=== PATIENT | female | born 1960 | race Caucasian/White ===

== ENCOUNTER 2020-03-02 01:01 | Emergency (ER) | payer BC ==
[2020-03-02] MEDS ORDERED: Orphenadrine 60 MG/2 ML Inj IM ONE (01:12)
[2020-03-02] MEDS ORDERED: Ketorolac 60 MG/2 ML SDV IM ONE (01:13)
[2020-03-02] MEDS ORDERED: Take Home: Acetaminophen/oxyCODONE 325-5 MG, 5 Tab Pack PO ONE (01:13)
--- NOTE | 2020-03-02 01:17 | EDM.PDOC ---
ED HPI GENERAL MEDICAL PROBLEM - General Chief Complaint: Back Pain or Injury Stated Complaint: SI JOINT PAIN Time Seen by Provider: 03/02/20 01:05 Source of Information: Reports: Patient History Limitations: Reports: No Limitations - History of Present Illness INITIAL COMMENTS - FREE TEXT/NARRATIVE: Patient comes into the emergency department with complaints of SI joint pain. Patient states that she has been working with neurology Regarding her chronic back And SI joint. Patient states that she had contacted her doctor this morning and they are going to try to get her set up with the pain clinic to have injections in detail the pain and discomfort goes away. Patient has had multiple MRIs/CT scans completed as well as going to physical therapy and primary care nurse practitioner. Patient states this afternoon she was starting to feel better she had taken a couple of her Flexeril's with pretty good relief according to her. However this evening approximately around 11 PM or kathryn roximately 2 hours prior to arrival to the emergency department she states that she had sharp shooting significant discomfort and pain down the left leg and she has not been able to get it under control. She ended up taking more Flexeril with 0 relief. Patient has been seen in the emergency department before and received Norflex IM injection as well as a Toradol injection with moderate relief. Patient would like that injection again if at all possible to help with the pain discomfort. Patient is also looking for some pain medications to help her get through this weekend until she can have her injection completed in the pain clinic early next week. Patient states when she rubs her thigh it does provide minimal relief however she states moving especially walking with the SI joint causes major significant pain and discomfort. Patient denies any chest pain, shortness of breath, dizziness, CMS concerns, range of motion concerns, numbness or tingling in either of her upper or lower extremities, headache, blurred vision, visual changes, abdominal pain, genitourinary concerns, or peripheral edema. Onset: Gradual Duration: Getting Worse Location: Reports: Lower Extremity, Left Quality: Reports: Sharp, Throbbing Severity: Severe Improves with: Reports: Rest Worsens with: Reports: Movement Associated Symptoms: Reports: No Other Symptoms Treatments DIRECTOR OF SUSTAINABILITY: Reports: Other (see below) (flexiril ) Left Back Pain Score (Numeric/FACES): 10 - Related Data Allergies Allergy/AdvReac Type Severity Reaction Status Date / Time No Known Allergies Allergy Verified 03/02/20 01:02 Home Meds: Home Meds Cyclobenzaprine [Flexeril] 10 mg PO TID PRN 03/02/20 [History] Diclofenac Sodium 75 mg PO BID PRN 03/02/20 [History] predniSONE [Prednisone] 20 mg PO DAILY #5 tablet 03/02/20 [Rx] Past Medical History - Past Health History Medical/Surgical History: Denies Medical/Surgical History Other Musculoskeletal History: sciatic pain Oncologic (Cancer) History: Reports: Uterine - Past Surgical History Female Surgical History: Reports: Hysterectomy Social & Family History - Tobacco Use Tobacco Use Status *Q: Unknown Ever Used Tobacco ED ROS GENERAL - Review of Systems Review Of Systems: Comprehensive ROS is negative, except as noted in HPI. Constitutional: Reports: No Symptoms HEENT: Reports: No Symptoms Respiratory: Reports: No Symptoms Cardiovascular: Reports: No Symptoms Endocrine: Reports: No Symptoms GI/Abdominal: Reports: No Symptoms : Reports: No Symptoms Musculoskeletal: Reports: Leg Pain Skin: Reports: No Symptoms Neurological: Reports: No Symptoms Psychiatric: Reports: No Symptoms Hematologic/Lymphatic: Reports: No Symptoms Immunologic: Reports: No Symptoms ED EXAM, GENERAL - Physical Exam Exam: See Below Exam Limited By: No Limitations General Appearance: Alert, WD/WN, No Apparent Distress Head: Atraumatic, Normocephalic Neck: Normal Inspection, Supple, Non-Tender, Full Range of Motion Respiratory/Chest: No Respiratory Distress, No Accessory Muscle Use, Chest Non- Tender Cardiovascular: Normal Peripheral Pulses, Regular Rate, Rhythm, No Edema (Female) Exam: Deferred Rectal (Female) Exam: Deferred Back Exam: Full Range of Motion Extremities: Normal Inspection, Normal Range of Motion, Non-Tender, No Pedal Edema, Normal Capillary Refill Neurological: Alert, Oriented, CN II-XII Intact, Normal Cognition, Normal Gait Psychiatric: Normal Affect, Normal Mood Skin Exam: Warm, Dry, Intact, Normal Color, No Rash Course - Vital Signs Last Recorded V/S: Last Vital Signs Temp 36.3 C 03/02/20 01:03 Pulse 80 03/02/20 01:03 Resp 20 03/02/20 01:03 BP 180/79 H 03/02/20 01:03 Pulse Ox 99 03/02/20 01:03 Departure - Departure Time of Disposition: 01:30 Disposition: Home, Self-Care 01 Condition: Good Clinical Impression: Chronic SI joint pain - Discharge Information *PRESCRIPTION DRUG MONITORING PROGRAM REVIEWED*: Not Applicable *COPY OF PRESCRIPTION DRUG MONITORING REPORT IN PATIENT SANDY: Not Applicable Instructions: Sacroiliac Joint Dysfunction, Acetaminophen; Oxycodone tablets, Prednisone tablets Additional Instructions: 1. rest 2. Can take your Flexeril as previously prescribed. Can take a Percocet for severe pain but must be 4 hours apart from Flexeril 3. Take prednisone for the next 5 days to help decrease the inflammation in the area and joint 4. Continue all at home medications 5. Activity and diet as tolerated 6. Can take over the counter Tylenol for any pain or discomfort 7. use ice or heat for 20 minutes at a time 3-4 ariana a day 8. Follow up with PCP if symptoms continue, return, or progress. Continue with your pain clinic appointment early next week when it is scheduled. 9. Call with any questions or concerns The medication you have been prescribed today has a warning it may inhibit your response or action time. It is advised you do not drive or operate any device while using this medications. It is also advised this medication can not be shared or given to other individuals for it is against the law and one may be punished in the court of law. Sepsis Event Note (ED) - Evaluation Sepsis Screening Result: No Definite Risk - Focused Exam Vital Signs: Vital Signs Temp Pulse Resp BP Pulse Ox 03/02/20 01:03 36.3 C 80 20 180/79 H 99 - Assessment/Plan Assessment:: 1. SI joint pain Plan: 1. Ice Applied to the affected area 2. Medication offered to the patient- Toradol and Norflex injections 3. Prednisone 20mg PO script given to her to start in the am 4. Take home package given for Percocet 5/325mg PO 5. Education regarding splinting, activity, [id number] medications, and follow-up care provided. 6. All questions and concerns addressed with the patient prior to discharge
== END 2020-03-02 01:34 | disposition home or self-care (01) ==
LOC: VM.ED 01:01
DX: M53.3 Sacrococcygeal disorders, not elsewhere classified (principal); G89.29 Other chronic pain; Z90.710 Acquired absence of both cervix and uterus
CPT/HCPCS: 96372; 99283; A9270; J1885; J2360

== ENCOUNTER 2020-03-04 04:35 | Emergency (ER) | payer BC ==
[2020-03-04] MEDS ORDERED: Orphenadrine 60 MG/2 ML Inj IM ONE (04:53)
[2020-03-04] MEDS ORDERED: Ketorolac 30 MG/ML SDV IM ONE (04:53)
[2020-03-04] MEDS ORDERED: Take Home: Acetaminophen/oxyCODONE 325-5 MG, 5 Tab Pack PO ONE (04:54)
--- NOTE | 2020-03-04 05:06 | EDM.PDOC ---
ED HPI GENERAL MEDICAL PROBLEM - General Chief Complaint: Back Pain or Injury Stated Complaint: back pain Time Seen by Provider: 03/04/20 04:46 Source of Information: Reports: Patient History Limitations: Reports: No Limitations - History of Present Illness INITIAL COMMENTS - FREE TEXT/NARRATIVE: Pt. presents to ER with complaints of acute on chronic L lower extremity pain. Pt. states that the discomfort has been persent for months and that she is undergoing physical therapy for the discomfort. She is scheduled to see pain management hopefully today for an SI joint injection. She was seen on Wednesday by Marjorie Rabago NP who gave the patient injections of norflex and toradol. She also gave the patient a 5 pack of percocet 5/325mg and the patient states that she took the last one late last night. Pt. states that this discomfort is similar to what she has experienced in the past. She has had MRIs of her pelvis and lumbar spine, and has seen neurology. She denies any fever or chills. No nausea, vomiting, or diarrhea. No numbness/tingling in the distal portion of the extremity. Denies any saddle anesthesia. No problems with incontinence of retention of urine. Location: Reports: Back, Pelvis Quality: Reports: Sharp, Throbbing Severity: Severe Left Lower Back Pain Score (Numeric/FACES): 10 - Related Data Allergies Allergy/AdvReac Type Severity Reaction Status Date / Time No Known Allergies Allergy Verified 03/04/20 04:35 Home Meds: Home Meds Cyclobenzaprine [Flexeril] 10 mg PO TID PRN 03/02/20 [History] Diclofenac Sodium 75 mg PO BID PRN 03/02/20 [History] predniSONE [Prednisone] 20 mg PO DAILY #5 tablet 03/02/20 [Rx] Past Medical History - Past Health History Medical/Surgical History: Denies Medical/Surgical History Other Musculoskeletal History: sciatic pain, left sided SI joint problems Oncologic (Cancer) History: Reports: Uterine - Past Surgical History Female Surgical History: Reports: Hysterectomy Social & Family History - Tobacco Use Tobacco Use Status *Q: Never Tobacco User ED ROS GENERAL - Review of Systems Review Of Systems: Comprehensive ROS is negative, except as noted in HPI. ED EXAM, GENERAL - Physical Exam Exam: See Below Exam Limited By: No Limitations General Appearance: Alert, WD/WN, Anxious, Moderate Distress Extremities: Normal Inspection, Normal Range of Motion, No Pedal Edema, Normal Capillary Refill Neurological: Alert, Oriented, CN II-XII Intact, Normal Cognition, Normal Gait, Normal Reflexes, No Motor/Sensory Deficits Skin Exam: Warm, Dry, Intact, Normal Color, No Rash Course - Vital Signs Last Recorded V/S: Last Vital Signs Temp 36.6 C 03/04/20 04:36 Pulse 90 03/04/20 04:36 Resp 20 03/04/20 04:36 BP 147/84 H 03/04/20 04:36 Pulse Ox 98 03/04/20 04:36 - Orders/Labs/Meds Meds: Medications Discontinued Medications Generic Name Dose Route Start Last Admin Trade Name Addy PRN Reason Stop Dose Admin Ketorolac Tromethamine 30 mg 03/04/20 04:53 03/04/20 05:00 Toradol IM 03/04/20 04:54 30 mg ONETIME ONE Administration Orphenadrine Citrate 60 mg 03/04/20 04:53 03/04/20 05:00 Norflex IM 03/04/20 04:54 60 mg ONETIME ONE Administration Oxycodone/Acetaminophen 1 packet 03/04/20 04:54 03/04/20 05:00 Take Home: Acetamin/Oxycodon 325-5 Mg, 5 Pack PO 03/04/20 04:55 1 packet ONETIME ONE Administration Departure - Departure Time of Disposition: 05:07 Disposition: Home, Self-Care 01 Clinical Impression: Chronic SI joint pain - Discharge Information Instructions: Sacroiliac Joint Dysfunction Referrals: PCP,Unobtain [Primary Care Provider] - Forms: ED Department Discharge Additional Instructions: Oxycodone/acetaminophen 5/325mg 1 tab every 6 hours as needed for pain Follow-up with your PCP/Pain clinic today Sepsis Event Note (ED) - Evaluation Sepsis Screening Result: No Definite Risk - Focused Exam Vital Signs: Vital Signs Temp Pulse Resp BP Pulse Ox 03/04/20 04:36 36.6 C 90 20 147/84 H 98 - Problem List Review Problem List Initiated/Reviewed/Updated: Yes - Assessment/Plan Plan: Oxycodone/acetaminophen 5/325mg 1 tab every 6 hours as needed for pain Follow-up with your PCP/Pain clinic today Finish your course of prednisone. Continue with your other medications.
== END 2020-03-04 05:08 | disposition home or self-care (01) ==
LOC: VM.ED 04:35
DX: M53.3 Sacrococcygeal disorders, not elsewhere classified (principal)
CPT/HCPCS: 96372; 99283; A9270-GY; J1885; J2360

== ENCOUNTER 2020-03-06 12:18 | Emergency (ER) | payer BC ==
[2020-03-06] MEDS ORDERED: HYDROmorphone 1 MG/ML Syringe IM ONE (12:24)
[2020-03-06] MEDS ORDERED: Promethazine 25 MG/ML SDV IM ONE (12:24)
--- NOTE | 2020-03-06 12:25 | EDM.PDOC ---
ED HPI GENERAL MEDICAL PROBLEM - General Stated Complaint: BACK PAIN Time Seen by Provider: 03/06/20 12:18 - History of Present Illness INITIAL COMMENTS - FREE TEXT/NARRATIVE: Patient comes emergency department today with complaints of left anterior thigh and leg pain. This patient has been struggling with recurrent SI joint pain on the left side that radiates down her left buttocks around to the anterior aspect of her left thigh. Is been going on since October. She has been seen multiple times in the emergency department most notably last week and x2. She has been taking her prednisone and her Flexeril without much improvement. She has been using Percocets as well for this pain. She has no recent falls trauma or injury. She has been seen multiple times in the primary care clinic as well as the ER. Today she was actually seen at the pain clinic in [place] where she received an injection in her spine which did help with her pain down the left buttocks but it did not help with the pain in the anterior aspect of the left thigh. She has no change in her functionality of her upper or lower extremities. No paresthesias of her upper or lower extremities. She has no change in the strength of her lower extremities. No loss of bowel or bladder. She has seen physical therapy for this but she does not feel it does much. She has been taking her Flexeril and diclofenac. Although today after she had the injection in her spine the pain down her left buttocks has resolved but the pain on the left anterior thigh is much worse. It is a burning searing shooting pain that is worse with movement. She has no fever or chills. No hematuria dysuria or urinary frequency. No flank pain. He recently had an MRI of her lower back that showed no acute findings according to the patient. Left Hip Pain Score (Numeric/FACES): 10 - Related Data Allergies Allergy/AdvReac Type Severity Reaction Status Date / Time No Known Allergies Allergy Verified 03/06/20 13:17 Home Meds: Home Meds Cyclobenzaprine [Flexeril] 10 mg PO TID PRN 03/02/20 [History] Diclofenac Sodium 75 mg PO BID PRN 03/02/20 [History] predniSONE [Prednisone] 20 mg PO DAILY #5 tablet 03/02/20 [Rx] Gabapentin [Neurontin] 300 mg PO DAILY #30 cap 03/06/20 [Rx] Past Medical History - Past Health History Medical/Surgical History: Denies Medical/Surgical History Other Musculoskeletal History: sciatic pain, left sided SI joint problems Oncologic (Cancer) History: Reports: Uterine - Past Surgical History Female Surgical History: Reports: Hysterectomy ED ROS GENERAL - Review of Systems Review Of Systems: Comprehensive ROS is negative, except as noted in HPI. ED EXAM,LOWER BACK PAIN/INJURY - Physical Exam Exam: See Below Exam Limited By: No Limitations General Appearance: Alert, WD/WN, Moderate Distress Eye Exam: Bilateral Eye: EOMI, PERRL Ears: Normal External Exam Nose: Normal Inspection Throat/Mouth: Normal Inspection Head: Atraumatic, Normocephalic Neck: Normal Inspection, Supple Respiratory/Chest: No Respiratory Distress, Lungs Clear, No Accessory Muscle Use, Chest Non-Tender Cardiovascular: Normal Peripheral Pulses, Regular Rate, Rhythm GI/Abdominal: Normal Bowel Sounds, Soft (Female) Exam: Deferred Rectal (Female) Exam: Deferred Back Exam: Normal Inspection, Full Range of Motion. No: CVA Tenderness (L), CVA Tenderness (R), Muscle Spasm, Paraspinal Tenderness, Vertebral Tenderness Extremities: Normal Inspection, Normal Range of Motion, No Pedal Edema, Normal Capillary Refill Neurological: Alert, Normal Mood/Affect, Normal Dorsiflexion, CN II-XII Intact, Normal Plantar Flexion, Normal Gait, Normal Reflexes, No Motor/Sensory Deficits, Oriented x 3 DTR - Lower Extremities: 0: Ankle (R), 2+: Knee (R), Knee (L), Ankle (R), Ankle (L) Psychiatric: Anxious Skin Exam: Warm, Dry, Intact, Normal Color, No Rash Course - Vital Signs Last Recorded V/S: Last Vital Signs Temp 97.7 F 03/06/20 12:35 Pulse 88 03/06/20 12:35 Resp 20 03/06/20 12:35 BP 147/74 H 03/06/20 12:35 Pulse Ox 100 03/06/20 12:35 - Orders/Labs/Meds Meds: Medications Discontinued Medications Generic Name Dose Route Start Last Admin Trade Name Freq PRN Reason Stop Dose Admin Gabapentin 300 mg 03/06/20 13:11 03/06/20 13:20 Neurontin PO 03/06/20 13:12 300 mg ONETIME ONE Administration Hydromorphone HCl 1 mg 03/06/20 12:24 03/06/20 12:30 Dilaudid IM 03/06/20 12:25 1 mg ONETIME ONE Administration Promethazine HCl 12.5 mg 03/06/20 12:24 03/06/20 12:30 Phenergan IM 03/06/20 12:25 12.5 mg ONETIME ONE Administration - Radiology Interpretation Free Text/Narrative:: I did review her MRI that was completed on 02/12/20. MRI per radiology shows mild lumbar spondylosis. No high-grade foraminal or central canal stenosis. - Re-Assessments/Exams Free Text/Narrative Re-Assessment/Exam: 03/06/20 18:20 The patient initially was given 1 mg of Dilaudid and 12.5 mg of Phenergan IM. Quite a bit of improvement after the above therapy. Viewing her chart she has received multiple doses of steroids in the past for this type of SI joint sciatica radiculopathy. She is still currently on a prednisone burst dose which is not doing anything as it typically has not in the past either. This is really becoming a chronic issue of this pain that she has been seen in the emergency department for multiple times. She just most recently received a prescription for Percocets as well. She does have some daily pain with this and I wonder if she is not better served by some type of modalities such as gabapentin. The injection took care of some of the posterior gluteal pain although it has not done much for the anterior thigh pain. Started on gabapentin 300 mg a day and slowly titrate her up to 3 times daily. She also needs to see her primary care provider for chronic management of her chronic symptoms as she will be best served in the primary care setting versus the emergency department which is been her mainstay of management for her chronic pain as of late. I would like her to contact the pain clinic today as well as she is having worsening pain following her procedure today. She is comfortable with this plan and her questions are answered. Departure - Departure Time of Disposition: 13:11 Disposition: Home, Self-Care 01 Clinical Impression: Chronic left SI joint pain - Discharge Information Prescriptions: Gabapentin [Neurontin] 300 mg PO DAILY #30 cap Instructions: Pain Medicine Instructions, [id number] Referrals: Cathryn Brewster MD [Primary Care Provider] - Forms: ED Department Discharge Additional Instructions: Continue previous medications. Start Gabapentin 1 tablet daily for 2 days. Then twice daily for 2 days and then three times a day. Caution sedation. May alter the dosing pattern longer days if problems with sedation. First dose given in the ED and RX sent to [facility]. Contact the [place] pain clinic after your ER visit today and let them know of your concerns. Return to the ED if new or worsening symptoms. Follow up Dr. Brewster in 7 days for recheck sooner if worse or not improving. Sepsis Event Note (ED) - Focused Exam Vital Signs: Vital Signs Temp Pulse Resp BP Pulse Ox 03/06/20 12:35 97.7 F 88 20 147/74 H 100
[2020-03-06] MEDS ORDERED: Gabapentin 300 MG Cap PO ONE (13:11)
== END 2020-03-06 13:22 | disposition home or self-care (01) ==
LOC: VM.ED 12:18
DX: M53.3 Sacrococcygeal disorders, not elsewhere classified (principal); G89.29 Other chronic pain; Z79.899 Other long term (current) drug therapy
CPT/HCPCS: 96372; 99283; A9270; J1170; J2550

== ENCOUNTER 2020-03-07 04:00 | Emergency (ER) | payer BC ==
[2020-03-07] MEDS ORDERED: HYDROmorphone 1 MG/ML Syringe IM ONE (04:14)
[2020-03-07] MEDS ORDERED: Promethazine 25 MG/ML SDV IM ONE (04:15)
[2020-03-07] MEDS ORDERED: Take Home: Acetaminophen/oxyCODONE 325-5 MG, 5 Tab Pack PO ONE (04:25)
--- NOTE | 2020-03-07 05:23 | EDM.PDOC ---
ED HPI GENERAL MEDICAL PROBLEM - General Chief Complaint: Back Pain or Injury Stated Complaint: Back pain Time Seen by Provider: 03/07/20 04:00 Source of Information: Reports: Patient History Limitations: Reports: No Limitations - History of Present Illness INITIAL COMMENTS - FREE TEXT/NARRATIVE: Patient comes emergency department for the second visit in the last 24 hours for complaints of worsening left anterior chronic radicular type thigh pain that has been worse for the past 24 hrs. See my note from 03/06/2020 for the extensive history of this left anterior thigh radicular type pain that she has had since October that she has been seen multiple times for in the emergency department. She has had no injury recently. She just yesterday was seen in the pain clinic in [place] where she received a spinal injection which helped with her pain down the posterior aspect of her left thigh but nothing on the anterior aspect of the thigh. She had good pain relief yesterday with the Dilaudid and the Phenergan and she was started on gabapentin although she is unable to sleep due to the pain this morning. No covid exposure no Covid Symptoms. Treatments HVAC DESIGN ENGINEER: Reports: Cold Therapy, Other (see below) Other Treatments HVAC DESIGN ENGINEER: Started on Gabapentin today. left groin/thigh Pain Score (Numeric/FACES): 8 - Related Data Allergies Allergy/AdvReac Type Severity Reaction Status Date / Time No Known Allergies Allergy Verified 03/06/20 13:17 Home Meds: Home Meds Cyclobenzaprine [Flexeril] 10 mg PO TID PRN 03/02/20 [History] Diclofenac Sodium 75 mg PO BID PRN 03/02/20 [History] predniSONE [Prednisone] 20 mg PO DAILY #5 tablet 03/02/20 [Rx] Gabapentin [Neurontin] 300 mg PO DAILY #30 cap 03/06/20 [Rx] Past Medical History - Past Health History Medical/Surgical History: Denies Medical/Surgical History Other Musculoskeletal History: sciatic pain, left sided SI joint problems Oncologic (Cancer) History: Reports: Uterine - Past Surgical History Female Surgical History: Reports: Hysterectomy Social & Family History - Family History Family Medical History: Unobtainable - Tobacco Use Tobacco Use Status *Q: Unknown Ever Used Tobacco - Caffeine Use Caffeine Use: Reports: None ED ROS GENERAL - Review of Systems Review Of Systems: Comprehensive ROS is negative, except as noted in HPI. ED EXAM,LOWER BACK PAIN/INJURY - Physical Exam Exam: See Below Text/Narrative:: The patient is somewhat anxious as she is sitting there constantly rubbing the anterior aspect of her left thigh. Exam Limited By: No Limitations General Appearance: Alert, WD/WN, Anxious Respiratory/Chest: No Respiratory Distress Cardiovascular: Normal Peripheral Pulses Back Exam: Normal Inspection, Full Range of Motion. No: Paraspinal Tenderness, Vertebral Tenderness Extremities: Normal Inspection, Normal Range of Motion Neurological: Alert, Normal Mood/Affect, Normal Dorsiflexion, Normal Plantar Flexion, Normal Gait, Normal Reflexes, No Motor/Sensory Deficits DTR - Lower Extremities: 2+: Knee (R), Knee (L), Ankle (R), Ankle (L) Psychiatric: Normal Affect, Normal Mood Skin Exam: Warm, Dry, Intact, Normal Color, No Rash Course - Vital Signs Last Recorded V/S: Last Vital Signs Temp 97.7 F 03/07/20 04:00 Pulse 83 03/07/20 04:00 Resp 16 03/07/20 04:00 BP 116/78 03/07/20 04:00 Pulse Ox 99 03/07/20 04:00 - Orders/Labs/Meds Meds: Medications Discontinued Medications Generic Name Dose Route Start Last Admin Trade Name Armandoq PRN Reason Stop Dose Admin Hydromorphone HCl 1 mg 03/07/20 04:14 03/07/20 04:25 Dilaudid IM 03/07/20 04:15 1 mg ONETIME ONE Administration Oxycodone/Acetaminophen 1 packet 03/07/20 04:25 03/07/20 05:20 Take Home: Acetamin/Oxycodon 325-5 Mg, 5 Pack PO 03/07/20 04:26 1 packet ONETIME ONE Administration Promethazine HCl 25 mg 03/07/20 04:15 03/07/20 04:26 Phenergan IM 03/07/20 04:16 25 mg ONETIME ONE Administration - Re-Assessments/Exams Free Text/Narrative Re-Assessment/Exam: 03/07/20 Patient was initially given Dilaudid 1 mg IM as well as 25 mg of Phenergan. I also discussed other modalities for her treatment such as craniosacral therapy and/or massage. I did have a rather extended conversation with this patient about the chronic usage of the emergency department for her chronic recurrent pain in the left anterior thigh. She has received multiple injections of narcotic pain medication as well as prescriptions. I also started her on gabapentin yesterday. According to the patient herself she has not followed up with primary care very often and/or they are not doing much for her pain. I feel that gabapentin should be a good course of pain management for her but we need to give this some time to get to therapy level. This will be the last controlled substance prescription that she is prescribed from myself out of the emergency department for her chronic pain. I will give her a small starter pack of 5 tablets of Percocet 53 25. She must contact her primary care provider today and this chronic pain needs to be managed out of the primary care setting as this is best for the patient. I also think that craniosacral therapy would be appropriate as well for her. She is understanding of this and her questions are answered. Departure - Departure Time of Disposition: 17:19 Disposition: Home, Self-Care 01 Clinical Impression: Chronic SI joint pain - Discharge Information Instructions: Chronic Back Pain, [id number], Pain Medicine Instructions, [id number] Referrals: PCP,Unobtain [Ordering Only Provider] - Forms: ED Department Discharge Additional Instructions: Continue with previous therapy. Add Percocet for breakthrough pain. 1 tablet every 6 hrs with food as needed for pain. Caution sedation. Starter pack given from the ED. Contact Dr. Brewster today consider a pelvic floor type MRI with your history of ovarian cancer. Also consider seeing a Cranio Sacral therapist for lower pelvis adjustments for pain and therapy. Such as [facility] in [place]. [phone] Return to the ED if new or worsening symptoms. Follow up with Dr. Brewster today in the clinic. Sepsis Event Note (ED) - Evaluation Sepsis Screening Result: No Definite Risk - Focused Exam Vital Signs: Vital Signs Temp Pulse Resp BP Pulse Ox 03/07/20 04:00 97.7 F 83 16 116/78 99
== END 2020-03-07 05:33 | disposition home or self-care (01) ==
LOC: VM.ED 04:00
DX: M53.3 Sacrococcygeal disorders, not elsewhere classified (principal); G89.29 Other chronic pain; Z79.899 Other long term (current) drug therapy
CPT/HCPCS: 96372; 99283; A9270; J1170; J2550

== ENCOUNTER 2020-03-09 17:31 | Emergency (ER) | payer BC ==
--- NOTE | 2020-03-09 18:29 | EDM.PDOC ---
ED HPI GENERAL MEDICAL PROBLEM - General Chief Complaint: Lower Extremity Injury/Pain Stated Complaint: STOMACH PAIN Time Seen by Provider: 03/09/20 18:03 Source of Information: Reports: Patient - History of Present Illness INITIAL COMMENTS - FREE TEXT/NARRATIVE: Almita is a 59 y/o female [facility] in her left lower back region, left hip region, and left groin. This is same ongoing pain that she has been having for the last few weeks. In fact her pain started in mid-October. She has been seen by chiropractic, PT, and had an SI pain injection. Most recently this week she was seen in the [facility] ER on 03/02/2020, 03/04/2020, 03/06/2020, and 03/07/2020. She has been given Dilaudid injections along with a various combination of muscle relaxers and steroids. She reports that the Percocet she was given on 03/07/2020 perkins snot touch the pain. She then saw Dr Brewster in the clinic and labs were done and she was started on Voltaren and Gabapentin. She does have an Ortho Consult coming up on 03/27/[address] [place] Brewster's note on 03/07/20 it is noted that Pelvis CT would be considered if her pain persists. Left Leg Pain Score (Numeric/FACES): 9 - Related Data Allergies Allergy/AdvReac Type Severity Reaction Status Date / Time No Known Allergies Allergy Verified 03/09/20 18:07 Home Meds: Home Meds Cyclobenzaprine [Flexeril] 10 mg PO TID PRN 03/02/20 [History] Diclofenac Sodium 75 mg PO BID PRN 03/02/20 [History] Gabapentin [Neurontin] 300 mg PO DAILY #30 cap 03/06/20 [Rx] Acetaminophen 650 mg PO Q4H PRN 03/09/20 [History] Acetaminophen/oxyCODONE [Percocet 325-5 MG] 1 each PO Q6H PRN 03/09/20 [History] Past Medical History - Past Health History Medical/Surgical History: Denies Medical/Surgical History Other Musculoskeletal History: sciatic pain, left sided SI joint problems Oncologic (Cancer) History: Reports: Uterine - Past Surgical History Female Surgical History: Reports: Hysterectomy Social & Family History - Family History Family Medical History: Unobtainable - Tobacco Use Tobacco Use Status *Q: Never Tobacco User - Caffeine Use Caffeine Use: Reports: None Review of Systems - Review of Systems Review Of Systems: See Below Constitutional: Reports: No Symptoms Eyes: Reports: No Symptoms Ears: Reports: No Symptoms Nose: Reports: No Symptoms Mouth/Throat: Reports: No Symptoms Respiratory: Reports: No Symptoms Cardiovascular: Reports: No Symptoms GI/Abdominal: Reports: No Symptoms Genitourinary: Reports: No Symptoms Musculoskeletal: Reports: Back Pain, Joint Pain (left hip/left thigh) Skin: Reports: No Symptoms ED EXAM, GENERAL - Physical Exam Exam: See Below General Appearance: Alert, WD/WN, Moderate Distress (sergei is sitting in chair in exam room, roxking back and forth and rubbing her left thigh; teary eyed) Ears: Hearing Grossly Normal Nose: Normal Inspection Throat/Mouth: Normal Voice Head: Atraumatic, Normocephalic Respiratory/Chest: No Respiratory Distress, Lungs Clear Cardiovascular: Regular Rate, Rhythm GI/Abdominal: Soft, Non-Tender (Female) Exam: Deferred Rectal (Female) Exam: Deferred Back Exam: Other (+tender in the left lower back/hip) Extremities: Other (+tenderness over the left thigh region) Neurological: Alert, Oriented, CN II-XII Intact Psychiatric: Tearful Skin Exam: Warm, Dry, Intact, Normal Color Lymphatic: No Adenopathy Course - Vital Signs Text/Narrative:: 1802 The patient was seen by the NEGOTIATOR. Her records from the ER and [facility] were reviewed. She was given Dilaudid 1mg IM. 1849 Further review of clinic records notes that Dr Brewster considered a Pelvis CT if her pain persists, since she is her again in the ER to night that study was ordered. 1934 CT results reviewed. No acute findings noted in the pelvis, recommend MRI for further diagnostics. Patient still having good pain relief from the Dilaudid. NEGOTIATOR discussed with the patient and her the need to follow up with Dr Brewster on Wednesday. Also discussed considering going to one of the Walk In Ortho Urgent Care clinics in [place] on Wednesday or seeing if she can get into the Orthopod in [place] sooner than 03/27/2020. Patient and her will consider options and proceed on Wednesday. She was advised to continue all the current medications that she has been prescribed. She can increase the Gabapentin tonight to TID. She was given discharge instructions and left the ER in stable condition. Last Recorded V/S: Last Vital Signs Temp 36.8 C 03/09/20 17:40 Pulse 106 H 03/09/20 17:40 Resp 16 03/09/20 17:40 BP 149/80 H 03/09/20 17:40 Pulse Ox 97 03/09/20 17:40 - Orders/Labs/Meds Meds: Medications Discontinued Medications Generic Name Dose Route Start Last Admin Trade Name Addy PRN Reason Stop Dose Admin Hydromorphone HCl 1 mg 03/09/20 18:35 03/09/20 18:42 Dilaudid IM 03/09/20 18:36 1 mg ONETIME ONE Administration - Radiology Interpretation Free Text/Narrative:: CT Pelvis WO=no acute findings, recommend MRI (See final radiology report) Departure - Departure Time of Disposition: 19:42 Disposition: Home, Self-Care 01 Clinical Impression: Left lumbar radiculopathy, Left hip pain, Left thigh pain - Discharge Information Instructions: Hip Pain, Pain Medicine Instructions, [id number], Pain Without a Known Cause, Radicular Pain Referrals: Cathryn Brewster MD [Primary Care Provider] - Forms: ED Department Discharge Sepsis Event Note (ED) - Evaluation Sepsis Screening Result: No Definite Risk - Focused Exam Vital Signs: Vital Signs Temp Pulse Resp BP Pulse Ox 03/09/20 17:40 36.8 C 106 H 16 149/80 H 97 - Assessment/Plan Assessment:: 1)Left Lumbar Radiculopathy 2)Left Hip Pain 3)Left Thigh Pain Plan: -You may increase the Gabapentin tonight to 3x/day use -Continue all other meds as prescribed -Attempt cold or heat therapy -Call Dr Brewster's clinic first thing on Wednesday AM to discuss current symptoms and how to proceed -Consider going to [place] to one of the Walk In Orthopedic Urgent Care Clinics at either [place] or [facility]. You do not need an appt to do this and you may get into an Mechanical Reliability Engineer sooner than waiting until 03/27/2020 -Return to the ER for any concerns or if you cannot manage your pain at home.
[2020-03-09] MEDS ORDERED: HYDROmorphone 1 MG/ML Syringe IM ONE (18:35)
--- NOTE | 2020-03-09 19:33 | CT ---
[id number] CT/CT Pelvis WO IV Exam: CT Pelvis WO IV Clinical Data: LEFT SIDE HIP PAIN LEFT SIDE SACROILIAC PAIN COMPARISON: NO PREVIOUS SIMILAR EXAM IS AVAILABLE FINDINGS: There is no fracture, loss of joint space, or abnormal diastases There is no soft tissue abnormality There is no hematoma Consider MRI IMPRESSION: NEGATIVE CT Bahman Cunha MD 03/09/20 1932 Thank you for allowing us to participate in the care of your patient.
== END 2020-03-09 19:49 | disposition home or self-care (01) ==
LOC: VM.ED 17:31
DX: M54.16 Radiculopathy, lumbar region (principal); M25.552 Pain in left hip; M79.652 Pain in left thigh
CPT/HCPCS: 72192; 96372; 99283; 99284; J1170

== ENCOUNTER 2020-03-18 04:00 | Emergency (ER) | payer BC ==
[2020-03-18] MEDS ORDERED: Promethazine 25 MG/ML SDV IM ONE (05:01)
[2020-03-18] MEDS ORDERED: HYDROmorphone 1 MG/ML Syringe IM ONE (05:01)
--- NOTE | 2020-03-18 05:18 | EDM.PDOC ---
ED HPI GENERAL MEDICAL PROBLEM - General Chief Complaint: Back Pain or Injury Stated Complaint: Left low back, hip, groin pain Time Seen by Provider: 03/18/20 04:45 Source of Information: Reports: Patient History Limitations: Reports: No Limitations - History of Present Illness INITIAL COMMENTS - FREE TEXT/NARRATIVE: Patient comes emergency department with her chronic left leg pain. This patient has been seen multiple times by myself as well as many of my partners for chronic left radicular type pain on the anterior thigh since October. Most recently I did seen her last week and given her some injections for pain acutely and started her on Neurontin as she has not been placed on anything for chronic management with her chronic pain through her primary care provider. She has seen the pain clinic in [place] and received an epidural injection that did not improve. She recently saw Ortho in [place] where she received a trochanter bursitis injection which did nothing for the pain. This pain is the same pain that she has had since October. It starts on the anterior iliac crest and radiates down medially to the proximal anterior thigh and into the groin. There is no rash or lesions. She has not fallen. There is no loss of bowel or bladder. She has no change in the functionality of her lower extremities. She denies any paresthesia of the lower extremities. She has had multiple MRIs CTs and other evaluations without any definitive cause of her chronic pain. She did see her primary care provider last week and was told to continue with her Neurontin although her neurontin was not refilled and she is running out. Treatments INDUSTRIAL HEALTH ENGINEER: Reports: Other (see below) Other Treatments INDUSTRIAL HEALTH ENGINEER: Gabapentin 7pm, Flexeril 1:30am. left hip/groin/low back Pain Score (Numeric/FACES): 9 - Related Data Allergies Allergy/AdvReac Type Severity Reaction Status Date / Time No Known Allergies Allergy Verified 03/09/20 18:07 Home Meds: Home Meds Cyclobenzaprine [Flexeril] 10 mg PO TID PRN 03/02/20 [History] Diclofenac Sodium 75 mg PO BID PRN 03/02/20 [History] Acetaminophen 650 mg PO Q4H PRN 03/09/20 [History] Gabapentin [Neurontin] 300 mg PO TID #30 cap 03/18/20 [Rx] Past Medical History - Past Health History Medical/Surgical History: Denies Medical/Surgical History Musculoskeletal History: Reports: Other (See Below) Other Musculoskeletal History: sciatic pain, left sided SI joint problems Oncologic (Cancer) History: Reports: Uterine - Past Surgical History Female Surgical History: Reports: Hysterectomy Social & Family History - Family History Family Medical History: Unobtainable - Tobacco Use Tobacco Use Status *Q: Unknown Ever Used Tobacco - Caffeine Use Caffeine Use: Reports: None ED ROS GENERAL - Review of Systems Review Of Systems: Comprehensive ROS is negative, except as noted in HPI. ED EXAM,LOWER BACK PAIN/INJURY - Physical Exam Exam: See Below Exam Limited By: No Limitations General Appearance: Alert, WD/WN, Anxious Respiratory/Chest: No Respiratory Distress, Lungs Clear, No Accessory Muscle Use, Chest Non-Tender Cardiovascular: Normal Peripheral Pulses, Regular Rate, Rhythm GI/Abdominal: Normal Bowel Sounds, Soft, Non-Tender (Female) Exam: Deferred Rectal (Female) Exam: Deferred Back Exam: Normal Inspection, Full Range of Motion. No: CVA Tenderness (L), CVA Tenderness (R), Decreased Range of Motion, Muscle Spasm, Paraspinal Tenderness, Vertebral Tenderness Extremities: Normal Inspection, Normal Range of Motion, Non-Tender, No Pedal Edema, Normal Capillary Refill Neurological: Alert, Normal Mood/Affect, Normal Dorsiflexion, CN II-XII Intact, Normal Plantar Flexion, Normal Gait, Normal Reflexes, No Motor/Sensory Deficits, Oriented x 3 DTR - Lower Extremities: 2+: Knee (R), Knee (L), Ankle (R), Ankle (L) Psychiatric: Normal Affect, Normal Mood Skin Exam: Warm, Dry, Intact, Normal Color Course - Vital Signs Last Recorded V/S: Last Vital Signs Temp 97.7 F 03/18/20 04:00 Pulse 76 03/18/20 04:00 Resp 16 03/18/20 04:00 BP 143/87 H 03/18/20 04:00 Pulse Ox 99 03/18/20 04:00 - Orders/Labs/Meds Meds: Medications Discontinued Medications Generic Name Dose Route Start Last Admin Trade Name Freq PRN Reason Stop Dose Admin Hydromorphone HCl 2 mg 03/18/20 05:01 03/18/20 05:12 Dilaudid IM 03/18/20 05:02 2 mg ONETIME ONE Administration Promethazine HCl 12.5 mg 03/18/20 05:01 03/18/20 05:12 Phenergan IM 03/18/20 05:02 12.5 mg ONETIME ONE Administration - Re-Assessments/Exams Free Text/Narrative Re-Assessment/Exam: 03/18/20 05:17 Reviewing this patient's ER records she has been seen on 01/20/20, 02/04/20, in March 02, , , , and today for 18 March. Reviewing her [place] PDMP she only has 1 prescription for gabapentin 300 mg #30 which was given by myself on 03/06/2020. I did give her Dilaudid 2mg IM and Phenergan 12.5mg IM I again had a rather long discussion with this patient about her usage of the emergency department for her chronic pain. I have given this talk to her in the past. Although I do have some concern of the lack of improvement that she has received from her multiple modalities of care to include pain management orthopedics as well as her primary care. She does feel that the Neurontin is helping and I will refill that so that we can try to quell some of her ER visits. I will not refill any of her other narcotic prescription such as Percocet for her chronic pain. I will refill her Neurontin tonight. I still feel that evaluation by physical therapy which she has not done yet as she has been guided by her primary care and/or a craniosacral therapist is possibly the next step as many of the other modalities have not assisted with her pain. She needs to contact her primary care in the next day or 2 to develop a plan what they are going to do for her chronic pain and breakthrough management of pain. He is comfortable with this plan and her questions are answered. Departure - Departure Time of Disposition: 05:40 Disposition: Home, Self-Care 01 Clinical Impression: Left lumbar radiculopathy, Left hip pain, Left thigh pain Chronic pain Qualifiers: Chronic pain type: other chronic pain Qualified Code(s): G89.29 - Other chronic pain - Discharge Information Prescriptions: Gabapentin [Neurontin] 300 mg PO TID #30 cap Instructions: Neuropathic Pain Referrals: PCP,Unobtain [Ordering Only Provider] - Forms: ED Department Discharge Additional Instructions: Contact physical therapy today for appointment next available. I will refill your gabapentin today as you will run out and your PCP has not refilled them. I will still recommend a cranio/sacral therapist as previous. Contact Dr. Mcclure clinic today and develop a plan for your chronic pain which is best managed out of the clinic. Return to the ED if new or worsening symptoms. Sepsis Event Note (ED) - Evaluation Sepsis Screening Result: No Definite Risk
== END 2020-03-18 05:52 | disposition home or self-care (01) ==
LOC: VM.ED 04:00
DX: M25.552 Pain in left hip (principal); M79.652 Pain in left thigh; M54.16 Radiculopathy, lumbar region; G89.29 Other chronic pain; Z79.899 Other long term (current) drug therapy
CPT/HCPCS: 96372; 99283; J1170; J2550

== ENCOUNTER 2020-03-24 20:37 | Emergency (ER) | payer BC ==
[2020-03-24] MEDS ORDERED: Take Home: Acetaminophen/Codeine 300 MG/30 MG, 5 Tab Pack PO ONE (21:05)
[2020-03-24] MEDS ORDERED: Take Home: predniSONE 20 MG, 2 Tab Pack PO ONE (21:05)
--- NOTE | 2020-03-25 07:08 | EDM.PDOC ---
ED HPI GENERAL MEDICAL PROBLEM - General Chief Complaint: Back Pain or Injury Stated Complaint: back pain Time Seen by Provider: 03/24/20 20:56 Source of Information: Reports: Patient History Limitations: Reports: No Limitations - History of Present Illness INITIAL COMMENTS - FREE TEXT/NARRATIVE: Pt. presents to ER with chronic L leg, buttock and hip pain. This is a longstanding problem for the patient. She has seen pain management and has had FREDY and SI injections. Her medications are not palliating the pain. Denies any new trauma. No foot drop. She states that the pain is the same as it has always been. She is a patient of Dr. Brewster. Location: Reports: Lower Extremity, Left Left Lower Back Pain Score (Numeric/FACES): 8 - Related Data Allergies Allergy/AdvReac Type Severity Reaction Status Date / Time No Known Allergies Allergy Verified 03/24/20 20:39 Home Meds: Home Meds Cyclobenzaprine [Flexeril] 10 mg PO TID PRN 03/02/20 [History] Diclofenac Sodium 75 mg PO BID PRN 03/02/20 [History] Acetaminophen 650 mg PO Q4H PRN 03/09/20 [History] Gabapentin [Neurontin] 300 mg PO TID #30 cap 03/18/20 [Rx] Past Medical History - Past Health History Medical/Surgical History: Denies Medical/Surgical History Musculoskeletal History: Reports: Other (See Below) Other Musculoskeletal History: sciatic pain, left sided SI joint problems Oncologic (Cancer) History: Reports: Uterine - Past Surgical History Female Surgical History: Reports: Hysterectomy Social & Family History - Family History Family Medical History: Unobtainable - Tobacco Use Tobacco Use Status *Q: Never Tobacco User - Caffeine Use Caffeine Use: Reports: None ED ROS GENERAL - Review of Systems Review Of Systems: See Below Constitutional: Reports: No Symptoms HEENT: Reports: No Symptoms Respiratory: Reports: No Symptoms Cardiovascular: Reports: No Symptoms Endocrine: Reports: No Symptoms GI/Abdominal: Reports: No Symptoms : Reports: No Symptoms Musculoskeletal: Reports: Leg Pain Skin: Reports: No Symptoms Neurological: Reports: No Symptoms Psychiatric: Reports: No Symptoms Hematologic/Lymphatic: Reports: No Symptoms Immunologic: Reports: No Symptoms ED EXAM, GENERAL - Physical Exam Exam: See Below Exam Limited By: No Limitations General Appearance: Alert, WD/WN, No Apparent Distress Back Exam: Normal Inspection, Full Range of Motion Extremities: Normal Inspection, Normal Range of Motion, Non-Tender, No Pedal Edema Neurological: Alert, Oriented, CN II-XII Intact, Normal Reflexes, No Motor/Sensory Deficits Course - Vital Signs Last Recorded V/S: Last Vital Signs Temp 35.8 C L 03/24/20 20:40 Pulse 97 03/24/20 20:40 Resp 20 03/24/20 20:40 BP 127/75 03/24/20 20:40 Pulse Ox 97 03/24/20 20:40 - Orders/Labs/Meds Meds: Medications Discontinued Medications Generic Name Dose Route Start Last Admin Trade Name Addy PRN Reason Stop Dose Admin Acetaminophen/Codeine Phosphate 1 packet 03/24/20 21:05 03/24/20 21:09 Take Home: Acetam/Codeine 300-30 Mg, 5 Pack PO 03/24/20 21:06 1 packet ONETIME ONE Administration Prednisone 1 packet 03/24/20 21:05 03/24/20 21:09 Take Home: Prednisone 20 Mg, 2 Tab Pack PO 03/24/20 21:06 1 packet ONETIME ONE Administration Departure - Departure Time of Disposition: 21:20 Disposition: Home, Self-Care 01 Clinical Impression: Chronic pain - Discharge Information Instructions: Radicular Pain, Prednisone tablets, Acetaminophen; Codeine tablets Forms: ED Department Discharge Additional Instructions: Continue with current medications. Do not take the tylenol if you are taking the tylenol with codeine. Prednisone 20mg 2 tabs daily for 1 week Tylenol #3 1 every 6 hours as needed for pain Please make an appointment with PT tomorrow. Follow-up with Dr. Brewster/pain management tomorrow. Ultimately we are not supposed to give opiate pain medication for chronic pain in the ER. Sepsis Event Note (ED) - Evaluation Sepsis Screening Result: No Definite Risk - Focused Exam Vital Signs: Vital Signs Temp Pulse Resp BP Pulse Ox 03/24/20 20:40 35.8 C L 97 20 127/75 97 - Problem List Review Problem List Initiated/Reviewed/Updated: Yes - Assessment/Plan Plan: Continue with current medications. Do not take the tylenol if you are taking the tylenol with codeine. Prednisone 20mg 2 tabs daily for 1 week Tylenol #3 1 every 6 hours as needed for pain Please make an appointment with PT tomorrow. Follow-up with Dr. Brewster/pain management tomorrow. Ultimately we are not supposed to give opiate pain medication for chronic pain in the ER.
== END 2020-03-24 21:21 | disposition home or self-care (01) ==
LOC: VM.ED 20:37
DX: G89.29 Other chronic pain (principal); Z79.899 Other long term (current) drug therapy
CPT/HCPCS: 99283; 99284; A9270-GY; J7512

== ENCOUNTER 2020-03-30 16:23 | Emergency (ER) | payer BC ==
[2020-03-30] MEDS ORDERED: Sodium Chloride 0.9% 10 ML Syringe FLUSH PRN (16:38)
[2020-03-30] MEDS ORDERED: Lactated Ringers 1,000 ML IV ONE ×2 (16:45→17:53)
--- NOTE | 2020-03-30 18:00 | CR ---
[id number] RAD/RAD Chest PA or AP 1V EXAM: RAD Chest PA or AP 1V INDICATION: SYNCOPE HYPOTENSION. COMPARISON: None. DISCUSSION: Cardiomediastinal silhouette is normal in size and contour. Lungs are clear. No pleural effusion or pneumothorax. IMPRESSION: Negative examination of the chest. Bernardo Boo MD 03/30/20 0936 Thank you for allowing us to participate in the care of your patient.
[2020-03-30 18:30] LABS: ANION GAP 11.8 mmol/L (10-20)
[2020-03-30] MEDS ORDERED: Aspirin 81 MG Tab.Chew PO ONE (18:32)
--- NOTE | 2020-03-30 19:11 | EDM.PDOC ---
ED HPI GENERAL MEDICAL PROBLEM - General Chief Complaint: Syncope Stated Complaint: ER Time Seen by Provider: 03/30/20 16:23 Source of Information: Reports: Patient - History of Present Illness INITIAL COMMENTS - FREE TEXT/NARRATIVE: Patient comes emergency department today from home with concerns of a syncopal episode. Patient was sitting at the kitchen table she was going to take her medications and the next thing she noticed was that she woke up on the ground. She was weak pale and diaphoretic. She felt like she had to have a bowel movement. She got up and went to the bathroom and had a rather large bowel movement but continued to complain of feeling just weak tired fatigued and drained. She continued to be diaphoretic and pale. She summoned the ambulance. EMS arrival patient was alert and appropriate did not complain of any shortness of breath or difficulty breathing or chest pain. She was brought to the emergency department. Upon arrival to the emergency department she continues to only complain of just feeling fatigued and tired. She has absolutely no energy. She denies any recent fever or chills. No palpitations. No chest pain shortness of breath difficulty breathing or cough. No paresthesias of her upper or lower extremities. No abdominal pain nausea or vomiting. No hematuria dysuria or urinary frequency. She has been constipated the last couple of days and had a rather large bowel movement today. She did take some MiraLAX over the past couple of days due to the concerns of constipation. I know this patient quite well as well as the emergency department as she has been struggling since October for some left lower severe back pain with radiculopathy that radiates interestingly around to the anterior proximal aspect of the left femur and into her groin. She has been evaluated for this multiple times. She does not have any of this pain upon arrival. She does not have any claudication symptoms in the past. She has no pain in her calf. No history of anticoagulation. No history of coagulopathies she does not smoke and she has not had any longstanding sedentary positioning recently. No recent surgeries. No Covid exposure. No Covid symptoms. Otherwise felt well the past couple of days. She has no pain in her back. No paresthesias of her upper or lower extremities. No loss of bowel or bladder. - Related Data Allergies Allergy/AdvReac Type Severity Reaction Status Date / Time No Known Allergies Allergy Verified 03/30/20 17:04 Home Meds: Home Meds Cyclobenzaprine [Flexeril] 10 mg PO TID PRN 03/02/20 [History] Diclofenac Sodium 75 mg PO BID PRN 03/02/20 [History] Acetaminophen 650 mg PO Q4H PRN 03/09/20 [History] Gabapentin [Neurontin] 300 mg PO TID #30 cap 03/18/20 [Rx] Hydrocodone/Acetaminophen [[place] 10-325 Tablet] 1 each PO Q4H PRN 03/30/20 [History] Past Medical History - Past Health History Medical/Surgical History: Denies Medical/Surgical History Musculoskeletal History: Reports: Other (See Below) Other Musculoskeletal History: sciatic pain, left sided SI joint problems Oncologic (Cancer) History: Reports: Uterine - Past Surgical History Female Surgical History: Reports: Hysterectomy Social & Family History - Family History Family Medical History: Unobtainable - Tobacco Use Tobacco Use Status *Q: Never Tobacco User Second Hand Smoke Exposure: No - Caffeine Use Caffeine Use: Reports: None - Recreational Drug Use Recreational Drug Use: No ED ROS GENERAL - Review of Systems Review Of Systems: Comprehensive ROS is negative, except as noted in HPI. - Physical Exam Exam: See Below Text/Narrative:: She is alert appropriate. She is quite pale and diaphoretic but she appears in no acute distress. She is not tachypneic. There is no labored breathing. Peers somewhat ill. Exam Limited By: No Limitations General Appearance: Alert, WD/WN Eye Exam: Bilateral Eye: EOMI, PERRL Ears: Normal External Exam Nose: Normal Inspection Throat/Mouth: Normal Inspection, Normal Lips Head Exam: Atraumatic, Normocephalic Neck: Normal Inspection, Supple Respiratory/Chest: No Respiratory Distress, Lungs Clear, Normal Breath Sounds, No Accessory Muscle Use, Chest Non-Tender Cardiovascular: Normal Peripheral Pulses, Regular Rate, Rhythm GI/Abdominal: Normal Bowel Sounds, Soft, Non-Tender, No Distention (Female) Exam: Deferred Rectal (Female) Exam: Deferred Neuro Exam (Abbreviated): Alert, Oriented, Normal Cognition, Normal Gait, No Motor/Sensory Deficits Back Exam: Normal Inspection, Full Range of Motion Extremities: Normal Inspection, Normal Range of Motion, Non-Tender, Normal Capillary Refill Psychiatric: Normal Affect, Normal Mood Skin Exam: Intact, Cool, Diaphoretic, Pallor #1 Interpretation EKG Date: 03/30/20 Time: 16:28 Rhythm: NSR Rate (Beats/Min): 77 Hoyt: Normal P-Wave: Present QRS: Normal ST-T: Normal QT: Normal #2 Interpretation EKG Date: 03/30/20 Time: 20:21 Rhythm: NSR Rate (Beats/Min): 87 Hoyt: Normal P-Wave: Present QRS: Normal ST-T: Normal QT: Normal Comparison: No Change Course - Vital Signs Last Recorded V/S: Last Vital Signs Temp 97.4 F 03/30/20 21:13 Pulse 87 03/30/20 21:13 Resp 12 03/30/20 21:13 BP 132/84 03/30/20 21:13 Pulse Ox 94 L 03/30/20 21:13 - Orders/Labs/Meds Orders: Active Orders 24 hr Category Date Time Status Ang Chest [CT] Stat Exams 03/30/20 22:14 Ordered CTA Abd Pelv w Cont [CT] Stat Exams 03/30/20 22:04 Ordered Labs: Laboratory Tests 03/30/20 03/30/20 03/30/20 Range/Units 16:30 16:35 17:11 WBC 5.1 (4.0-10.0) x10^3/uL RBC 3.62 L (4.00-5.50) x10^6/uL Hgb 10.7 L (12.0-16.0) g/dL Hct 33.2 (33.0-47.0) % MCV 91.7 (78.0-93.0) fL MCH 29.6 (26.0-32.0) pg MCHC 32.2 (32.0-36.0) g/dL RDW Coeff of Maria R 13.7 (10.0-15.0) % Plt Count 108 L (130-400) x10^3/uL Neut % (Auto) 63.5 (50.0-80.0) % Lymph % (Auto) 26.4 (25.0-50.0) % Iroquois % (Auto) 9.1 (2.0-11.0) % Eos % (Auto) 0.6 (0.0-4.0) % Baso % (Auto) 0.4 (0.2-1.2) % PT (9.5-12.3) SEC INR (2.0-3.5) APTT (25.6-32.8) SEC D-Dimer, Quantitative (<=0.58) mg/LFEU Sodium (136-145) mmol/L Potassium (3.5-5.1) mmol/L Chloride (98-107) mmol/L Carbon Dioxide (21-32) mmol/L Anion Gap (10-20) mmol/L BUN (7-18) mg/dL Creatinine (0.55-1.02) mg/dL Est Cr Clr Drug Dosing mL/min Estimated GFR (MDRD) Glucose (74-106) mg/dL Lactic Acid (0.4-2.0) mmol/L Calcium (8.5-10.1) mg/dL Corrected Calcium (8.5-10.1) mg/dL Total Bilirubin (0.2-1.0) mg/dL AST (15-37) U/L ALT (14-59) U/L Alkaline Phosphatase (46-116) U/L Troponin I (<=0.056) ng/mL Total Protein (6.4-8.2) g/dL Albumin (3.4-5.0) g/dL Globulin Albumin/Globulin Ratio Urine Color Dark yellow H (YELLOW) Urine Appearance Clear (CLEAR) Urine pH 5.5 (5.0-8.0) Ur Specific Darden 1.025 Urine Protein Trace H (NEGATIVE) mg/dL Urine Glucose (UA) Negative (NEGATIVE) mg/dL Urine Ketones Trace H (NEGATIVE) mg/dL Urine Occult Blood Negative (NEGATIVE) Urine Nitrite Negative (NEGATIVE) Urine Bilirubin Small H (NEGATIVE) Urine Urobilinogen 0.2 (0.2) EU/dL Ur Leukocyte Esterase Negative (NEGATIVE) Urine RBC 0-5 (NOT SEEN) /HPF Urine WBC 0-5 (NOT SEEN) /HPF Ur Squamous Epith Cells Few H (NEGATIVE) /HPF Urine Bacteria Few H (NEGATIVE) /HPF SARS CoV-2 RNA Rapid RAHDA Negative (NEGATIVE) 03/30/20 03/30/20 03/30/20 Range/Units 17:11 17:11 20:12 WBC (4.0-10.0) x10^3/uL RBC (4.00-5.50) x10^6/uL Hgb (12.0-16.0) g/dL Hct (33.0-47.0) % MCV (78.0-93.0) fL MCH (26.0-32.0) pg MCHC (32.0-36.0) g/dL RDW Coeff of Maria R (10.0-15.0) % Plt Count (130-400) x10^3/uL Neut % (Auto) (50.0-80.0) % Lymph % (Auto) (25.0-50.0) % Iroquois % (Auto) (2.0-11.0) % Eos % (Auto) (0.0-4.0) % Baso % (Auto) (0.2-1.2) % PT (9.5-12.3) SEC INR (2.0-3.5) APTT (25.6-32.8) SEC D-Dimer, Quantitative (<=0.58) mg/LFEU Sodium 140 (136-145) mmol/L Potassium 3.8 (3.5-5.1) mmol/L Chloride 105 (98-107) mmol/L Carbon Dioxide 27 (21-32) mmol/L Anion Gap 11.8 (10-20) mmol/L BUN 21 H (7-18) mg/dL Creatinine 1.0 (0.55-1.02) mg/dL Est Cr Clr Drug Dosing 53.16 mL/min Estimated GFR (MDRD) 56 Glucose 120 H (74-106) mg/dL Lactic Acid 3.0 H* (0.4-2.0) mmol/L Calcium 8.4 L (8.5-10.1) mg/dL Corrected Calcium 9.52 (8.5-10.1) mg/dL Total Bilirubin 0.6 (0.2-1.0) mg/dL AST 17 (15-37) U/L ALT 30 (14-59) U/L Alkaline Phosphatase 58 (46-116) U/L Troponin I 0.203 H* 1.108 H* (<=0.056) ng/mL Total Protein 5.7 L (6.4-8.2) g/dL Albumin 2.6 L (3.4-5.0) g/dL Globulin 3.1 Albumin/Globulin Ratio 0.84 Urine Color (YELLOW) Urine Appearance (CLEAR) Urine pH (5.0-8.0) Ur Specific Darden Urine Protein (NEGATIVE) mg/dL Urine Glucose (UA) (NEGATIVE) mg/dL Urine Ketones (NEGATIVE) mg/dL Urine Occult Blood (NEGATIVE) Urine Nitrite (NEGATIVE) Urine Bilirubin (NEGATIVE) Urine Urobilinogen (0.2) EU/dL Ur Leukocyte Esterase (NEGATIVE) Urine RBC (NOT SEEN) /HPF Urine WBC (NOT SEEN) /HPF Ur Squamous Epith Cells (NEGATIVE) /HPF Urine Bacteria (NEGATIVE) /HPF SARS CoV-2 RNA Rapid RADHA (NEGATIVE) 03/30/20 03/30/20 03/30/20 Range/Units 20:12 20:12 20:14 WBC (4.0-10.0) x10^3/uL RBC (4.00-5.50) x10^6/uL Hgb (12.0-16.0) g/dL Hct (33.0-47.0) % MCV (78.0-93.0) fL MCH (26.0-32.0) pg MCHC (32.0-36.0) g/dL RDW Coeff of Maria R (10.0-15.0) % Plt Count (130-400) x10^3/uL Neut % (Auto) (50.0-80.0) % Lymph % (Auto) (25.0-50.0) % [place]ois % (Auto) (2.0-11.0) % Eos % (Auto) (0.0-4.0) % Baso % (Auto) (0.2-1.2) % PT 10.1 (9.5-12.3) SEC INR 0.9 L (2.0-3.5) APTT 23.0 L (25.6-32.8) SEC D-Dimer, Quantitative > 35.20 H (<=0.58) mg/LFEU Sodium (136-145) mmol/L Potassium (3.5-5.1) mmol/L Chloride (98-107) mmol/L Carbon Dioxide (21-32) mmol/L Anion Gap (10-20) mmol/L BUN (7-18) mg/dL Creatinine (0.55-1.02) mg/dL Est Cr Clr Drug Dosing mL/min Estimated GFR (MDRD) Glucose (74-106) mg/dL Lactic Acid (0.4-2.0) mmol/L Calcium (8.5-10.1) mg/dL Corrected Calcium (8.5-10.1) mg/dL Total Bilirubin (0.2-1.0) mg/dL AST (15-37) U/L ALT (14-59) U/L Alkaline Phosphatase (46-116) U/L Troponin I (<=0.056) ng/mL Total Protein (6.4-8.2) g/dL Albumin (3.4-5.0) g/dL Globulin Albumin/Globulin Ratio Urine Color (YELLOW) Urine Appearance (CLEAR) Urine pH (5.0-8.0) Ur Specific Darden Urine Protein (NEGATIVE) mg/dL Urine Glucose (UA) (NEGATIVE) mg/dL Urine Ketones (NEGATIVE) mg/dL Urine Occult Blood (NEGATIVE) Urine Nitrite (NEGATIVE) Urine Bilirubin (NEGATIVE) Urine Urobilinogen (0.2) EU/dL Ur Leukocyte Esterase (NEGATIVE) Urine RBC (NOT SEEN) /HPF Urine WBC (NOT SEEN) /HPF Ur Squamous Epith Cells (NEGATIVE) /HPF Urine Bacteria (NEGATIVE) /HPF SARS CoV-2 RNA Rapid RADHA (NEGATIVE) Meds: Medications Discontinued Medications Generic Name Dose Route Start Last Admin Trade Name Armandoq PRN Reason Stop Dose Admin Aspirin 324 mg 03/30/20 18:32 03/30/20 19:00 Aspirin PO 03/30/20 18:33 324 mg ONETIME ONE Administration Heparin Sodium (Porcine) 4,000 units 03/30/20 22:13 03/30/20 22:45 Heparin Sodium IVPUSH 03/30/20 22:14 4,000 units .BOLUS ONE Administration Hydromorphone HCl 1 mg 03/30/20 23:06 03/30/20 23:10 Dilaudid IVPUSH 03/30/20 23:07 1 mg ONETIME ONE Administration Lactated Ringer's 1,000 mls @ 999 mls/hr 03/30/20 16:45 03/30/20 16:45 Ringers, Lactated IV 03/30/20 17:45 999 mls/hr ONETIME ONE Administration Lactated Ringer's 1,000 mls @ 999 mls/hr 03/30/20 17:53 03/30/20 17:55 Ringers, Lactated IV 03/30/20 18:53 999 mls/hr ONETIME ONE Administration Heparin Sodium/Sodium Chloride 25,000 units in 500 mls @ 20 mls/hr 03/30/20 22:15 03/30/20 22:46 Heparin 25,000 Units In 1/2 Ns 500 Ml IV 1,000 units/hr TITRATE STEPHANIE 20 mls/hr Administration Protocol 1,000 UNITS/HR Iopamidol 100 ml 03/30/20 22:29 03/30/20 22:31 Isovue-300 (61%) IVPUSH 03/30/20 22:30 100 ml ONETIME ONE Administration Sodium Chloride 10 ml 03/30/20 16:38 Saline Flush FLUSH ASDIRECTED PRN Keep Vein Open - Radiology Interpretation Free Text/Narrative:: Chest x-ray per radiology negative as of examination of the chest. CT angiogram of the chest shows fairly significant bilateral pulmonary artery emboli with right cardiac strain. No consolidation pleural effusion or pneumothorax. CT abdomen and pelvis with IV contrast normal caliber aorta without dissection or aneurysm. Widely patent aortic branches and iliac arteries. Left peripelvic cyst versus hydronephrosis. Scattered colonic diverticulosis without diverticulitis. - Re-Assessments/Exams Free Text/Narrative Re-Assessment/Exam: Covid rapid test was negative. Patient was hypotensive and was given a total of 2 L of LR bolus with a blood pressure initially of 84 systolically. 12/Laboratory evaluation with a white blood cell count of 5.1, hemoglobin 10.7, platelets 108. Lactic acid of 3.0 BUN 21 creatinine 1.0 normal sodium and potassium normal liver enzymes. She had an elevated troponin at 0.203. She has not had any chest pain or shortness of breath or difficulty breathing recently. She was given 324 of aspirin orally. Her urinalysis is negative for any infectious process. Small amount of ketones. Blood pressure did improve following the LR boluses. But she continues to be somewhat pale and mildly diaphoretic. Her troponin is mildly elevated she has not had any chest pain shortness of breath or difficulty breathing. She was given aspirin. I wonder if she did not have some type of cardiac dysrhythmia or other cause elevated her troponin. We will trend her troponin and recheck an EKG and monitor her cardiac rhythm over the next 4 hours. Resting quite comfortably in the emergency department she had no ectopy in the emergency department. She had no syncope. She is still complaining of generalized malaise and fatigue and just really no energy. She is still pale and somewhat diaphoretic. Repeat of her troponin shows an elevation of 1.108. Her repeat of her EKG is unchanged. With the concerns of syncope hypotension and elevated troponin I also have concerns for some type of pathology such as an aortic presentation. T a chest abdomen pelvis was completed. And was found that she had fairly significant bilateral pulmonary embolism with a small thin tail of saddle PE as well as noted RV strain. There is noted RV strain is what most likely is causing her elevation of her troponin. She is not tachypneic she is not tachycardic nor does she have any chest pain she has not had any recent surgeries this would be an iatrogenic pulmonary embolism. With elevated troponin RV strain and the iatrogenic component of her pulmonary embolism I called and spoke with Dr. Cervantes at [facility] in [place] after initiating the patient on a heparin gtt and bolus. HPI ER COURSE findings and concerns were relayed to him. He accepted the patient in transfer at this time for further care management and workup at [facility]. Pal the findings of the fairly extensive bilateral pulmonary embolism with the patient. I am unsure of what would be the trigger for her to have these. She is aware of the need for transfer to [facility] in [place]. She is comfortable with this plan and her questions are answered. Departure - Departure Time of Disposition: 22:30 Disposition: DC/Tfer to [facility] 02 Clinical Impression: Elevated troponin Pulmonary embolism Qualifiers: Pulmonary embolism type: multiple subsegmental (without acute cor pulmonale) Qualified Code(s): I26.94 - Multiple subsegmental pulmonary emboli without acute cor pulmonale - Discharge Information Referrals: Cathryn Brewster MD [Primary Care Provider] - Forms: ED Department Discharge, Interfacility Transfer [facility] Sepsis Event Note (ED) - Evaluation Sepsis Screening Result: No Definite Risk - My Orders Last 24 Hours: My Active Orders 03/30/20 22:04 CTA Abd Pelv w Cont [CT] Stat 03/30/20 22:14 Ang Chest [CT] Stat - Assessment/Plan Last 24 Hours: My Active Orders 03/30/20 22:04 CTA Abd Pelv w Cont [CT] Stat 03/30/20 22:14 Ang Chest [CT] Stat
[2020-03-30] MEDS ORDERED: Heparin Sodium 5,000 Units/ML Vial IVPUSH ONE (22:13)
[2020-03-30] MEDS ORDERED: Heparin Sodium/0.45% NaCl 25,000 UNITS/500 ML BAG IV SCH (22:15)
[2020-03-30] MEDS ORDERED: Iopamidol 612 MG/ML 100 ML Bottle IVPUSH ONE (22:29)
[2020-03-30] MEDS ORDERED: HYDROmorphone 1 MG/ML Syringe IVPUSH ONE (23:06)
--- NOTE | 2020-04-01 13:41 | CT ---
[id number] CT/CTA Chest Abdomen Pelvis EXAM: CTA Chest Abdomen Pelvis CLINICAL DATA: SYNCOPE, HYPOTENSION, ? AORTA COMPARISON STUDY: Radiograph from today. FINDINGS: Thoracic aorta is normal in caliber. No dissection. Extensive bilateral pulmonary emboli, including saddle embolus draped over the pulmonary trunk bifurcation extending into the main right and left pulmonary arteries, right upper and middle lobar branches. Left lower lobar branch, and numerous downstream segmental and subsegmental branches of both lungs. Bowed appearance of the intraventricular septum suggests right heart strain. Few scattered solid noncalcified pulmonary nodules measuring 4 mm or less in both lungs. Additionally there are linear opacities in the posterior lower lobes. No pleural effusion or pneumothorax. No evidence of pneumonia or pulmonary infarction. No mediastinal or hilar lymphadenopathy. Abdomen and pelvis: Liver, spleen, gallbladder, pancreas, and adrenal glands are unremarkable. Sinus cysts in the kidneys left greater than right. Kidneys are otherwise unremarkable. No evidence of bowel injury, obstruction, or inflammation. Appendix is normal. 7 x 10 x 9 mm exophytic mass arising from the posterior stomach cardia just distal to the gastroesophageal junction (series 4 image 69 and series 5 image 62). Finding could represent a small gastric diverticulum. Consider endoscopy and/or follow-up CT within 3-6 months to exclude mass. Abdominal aorta is normal in caliber. No dissection. Iliac arteries are also normal. Urinary bladder is intact. No lymphadenopathy, free fluid, or pneumoperitoneum. Bones and soft tissues: No fracture, compression deformity, or osseous lesion. IMPRESSION: Extensive bilateral pulmonary emboli, including a saddle embolus extending into numerous lobar branches bilaterally. Bowed intraventricular septum suggesting right heart strain. Correlate with EKG. No other acute findings. Additional findings are described above. Bernardo Boo MD 04/01/20 [id number] Thank you for allowing us to participate in the care of your patient.
== END 2020-03-30 23:25 | disposition short-term general hospital (02) ==
LOC: VM.ED 16:23
DX: I26.94 Multiple subsegmental thrombotic pulmonary emboli without acute cor pulmonale (principal); R79.89 Other specified abnormal findings of blood chemistry; Z90.710 Acquired absence of both cervix and uterus; Z79.899 Other long term (current) drug therapy
CPT/HCPCS: 36415; 71045; 71260; 71275; 74174; 74177; 80053; 81001; 83605; 84484; 85025; 85379; 85610; 85730; 87040; 93005; 93010; 96365; 96375; 99284; 99285-25; A9270-GY; J1170; J1644; J7120; Q9967; U0002